=== PATIENT | male | born 1965 ===

== ENCOUNTER 2019-05-17 13:01 | Emergency (ER) | payer OTHER ==
[~2019-05-17] VITALS: Ht 188 cm; Wt 97.5 kg
[2019-05-17] MEDS ORDERED: ENALAPRIL MALEA10 MG PO (13:45)
[2019-05-17] MEDS ORDERED: NORVASC5 MG PO (13:45)
== END 2019-05-17 18:53 | disposition home or self-care (01) ==
LOC: ER 13:01
DX: J11.1 Influenza due to unidentified influenza virus with other respiratory manifestations (principal)

== ENCOUNTER 2021-02-06 09:16 | Emergency (ER) | payer OTHER ==
[~2021-02-06] VITALS: Ht 188 cm; Wt 95.3 kg
[~2021-02-06 09:16] MED LIST: ENALAPRIL MALEA10 MG PO; NORVASC5 MG PO
[2021-02-06] MEDS ORDERED: ORPHENADRINE C100 MG PO (13:19)
[2021-02-06] MEDS ORDERED: DICLOFENAC POTA50 MG PO (13:19)
== END 2021-02-06 13:49 ==
LOC: ER 09:16
DX: S33.5XXA Sprain of ligaments of lumbar spine, initial encounter (principal); X58.XXXA Exposure to other specified factors, initial encounter; Y92.89 Other specified places as the place of occurrence of the external cause; I10 Essential (primary) hypertension